=== PATIENT | female | born 1980 | race African-American/Black ===

== ENCOUNTER 2017-12-14 12:55 | Inpatient (IN) | payer OTHER ==
[~2017-12-14] VITALS: Ht 160 cm; Wt 91.6 kg
[~2017-12-14 12:55] MED LIST: ALBUTEROL0.09 MG/A1 INH; MOTRIN 600 MG600 MG PO
[2017-12-14 13:18] LABS: ABSOLUTE BASOPHIL COUNT 0.1 /CUMM (0.0-0.2); ABSOLUTE EOSINOPHIL COUNT 0.1 /CUMM (0.0-0.7); ABSOLUTE GRANULOCYTE CT 8.3 /CUMM (1.4-6.5); ABSOLUTE LYMPH COUNT 2.1 /CUMM (1.2-3.4); ABSOLUTE MONOCYTE COUNT 0.9 /CUMM (0.10-0.60); BASOPHIL % 0.8 % (0.0-2.0); HEMATOCRIT 34.9 % (37-47); MEAN CORPUSCULAR HGB 27.9 PG (27.0-31.0); MEAN CORPUSCULAR HGB CONC 32.7 G/DL (33.0-37.0); MEAN CORPUSCULAR VOLUME 85.1 FL (81.0-99.0); MEAN PLATELET VOLUME 8.1 FL (7.4-10.4); PLATELET COUNT 259 /CUMM (130-400); RBC DISTRIBUTION WIDTH 14.2 % (11.5-14.5); WHITE BLOOD CELL COUNT 11.5 /CUMM (4.8-10.8)
--- NOTE | 2017-12-14 19:46 | History & Physical Pre-Op ---
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 care complete and remarkable for positive THC in urine and GBS. Allergies/Medications Allergies: Coded Allergies: NO KNOWN ALLERGIES (12/14/17) Home Med list Albuterol Sulfate (Albuterol Sulfate Hfa) 0.09 MG/Actuation INOCENCIA 2 PUFF INH Q4- 6 PRN PRN SHORTNESS OF BREATH/COUGH USE WITH SPACER FOR MAXIMUM EFFECT Ibuprofen (Motrin 600 MG Tab) 600 MG TAB 1 TAB PO Q6-PRN PRN PAIN/INFLAMMATION with food Past History Surgical History Pertinent Surgical History: none (excision of HPV) Past Family/Social History Psychosocial History Smoking Status: Former Smoker Review of Systems Review of Systems Constitutional: Reports: no symptoms. EENTM: Reports: no symptoms. Cardiovascular: Reports: no symptoms. Respiratory: Reports: no symptoms. GI: Reports: no symptoms. Genitourinary: Reports: no symptoms. Musculoskeletal: Reports: no symptoms. Skin: Reports: no symptoms. Neurological/Psychological: Reports: no symptoms. Hematologic/Endocrine: Reports: no symptoms. Immunologic/Allergic: Reports: no symptoms. All Other Systems: Reviewed and Negative Exam & Diagnostic Data Last 24 Hrs of Vital Signs/I&O vss Physical Exam: HEENT: NCAT Chest: CTA CV: nl S1S2 Abd: gravid, cepahlic EFW 8 lb Pelvic: 1-2/50/-2 Ext: no c/c/e Assessment/Plan Assessment/Plan: induction of labor at 40 week + GBS pitocin, PCN As Ranked By This Provider Problem List: 1.
--- NOTE | 2017-12-14 19:48 | PN- Obstetrical ---
Subjective Subjective: strong contractions; urge to push Review of Systems: neg Objective Last 24 Hrs of Vital Signs/I&O vss Physical Exam: fhr cat 1 Cx 9.5 unreducible 0 station Obstetric Exam Dilation (cm): 9 Effacement (%): 100 Station: 0 Membranes: AROM Fluid: clear Multiple Gestation? No Contractions: q1-2 Assessment/Plan Assessment/Plan expectant mgmt Problem List: 1.
--- NOTE | 2017-12-14 21:24 | Labor & Delivery Summary ---
Delivery Summary Vaginal Delivery: Vaginal: vertex Episiotomy/Lacerations: Episiotomy/Lacerations: epis Placenta: Placenta: spontanteous, normal, 3 vessel Anesthesia: epi Baby's Weight: p sts Apgars - 1 Min: 9 Apgars - 5 Min: 9
[2017-12-15 08:31] LABS: ABSOLUTE GRANULOCYTE CT 17.5 /CUMM (1.4-6.5); ABSOLUTE LYMPH COUNT 2.4 /CUMM (1.2-3.4); BASOPHIL % 0.4 % (0.0-2.0); EOSINOPHIL % 0.2 % (0-5); GRANULOCYTE % 79.3 % (42.2-75.2); MEAN CORPUSCULAR HGB 27.6 PG (27.0-31.0); MEAN CORPUSCULAR HGB CONC 32.4 G/DL (33.0-37.0); MEAN CORPUSCULAR VOLUME 85.3 FL (81.0-99.0); MEAN PLATELET VOLUME 8.5 FL (7.4-10.4); PLATELET COUNT 220 /CUMM (130-400); RBC DISTRIBUTION WIDTH 14.4 % (11.5-14.5)
[2017-12-15 08:40] LABS: ABSOLUTE BASOPHIL COUNT 0.1 /CUMM (0.0-0.2); ABSOLUTE EOSINOPHIL COUNT 0 /CUMM (0.0-0.7)
[2017-12-15 08:54] LABS: HEMATOCRIT 28.2 % (37-47)
[2017-12-15 10:06] LABS: WHITE BLOOD CELL COUNT 22.1 /CUMM (4.8-10.8)
--- NOTE | 2017-12-15 18:00 | PN- Post Delivery/GYN ---
Subjective Subjective: NO C/O Review of Systems: NEGATIVE Objective Last 24 Hrs of Vital Signs/I&O Intake & Output 12/15 1600 12/15 0800 12/15 0000 Intake Total Output Total Balance Patient 202 lb Weight Physical Exam: FF EXT NT Assessment/Plan Assessment/Plan S/P PPD 1 STABLE CIRC TODAY DISCHARGE HOME TOMORROW Problem List: 1.
[2017-12-15] MEDS ORDERED: IBUPROFEN800 M1 PO (18:04)
[2017-12-15] MEDS ORDERED: DOCUSATE SODIU100 M3 PO (18:04)
[2017-12-16 02:37] VITALS: BP 120/72
--- NOTE | 2017-12-16 10:35 | PN- OBGYN ---
Surgical Brief Attending Note Brief Attending Note: Seen and evauluated Vitals per paper record and no complaints. Breast feeding counseling provided Peripheral edema reviewed VTE risk present but minimal as vaginal . PIH counseling provided. Patient is normotensive Perineal care instructions provided and expectations Tdap administered as was influenza Pain mgmt strategies reviewed DC home today with 2-3 day follow up with CBC and 4-[address] Torres.
== END 2017-12-16 11:40 | DRG 560 ==
LOC: GNO 12:55
PROVIDERS: Obstetrics & Gynecology
PROC: 3E033VJ Introduction of Other Hormone into Peripheral Vein, Percutaneous Approach (ICD-10-PCS; principal; 2017-12-14)
PROC: 10E0XZZ Delivery of Products of Conception, External Approach (ICD-10-PCS; 2017-12-14)
PROC: 0W8NXZZ Division of Female Perineum, External Approach (ICD-10-PCS; 2017-12-14)
DX: O99.824 Streptococcus B carrier state complicating childbirth (principal); Z37.0 Single live birth; Z3A.40 40 weeks gestation of pregnancy
CPT/HCPCS: GNOS; 36415; 80307; 81001; 87086; J7120